=== PATIENT | male | born 1995 | race Two or more races ===

== ENCOUNTER 2018-12-16 05:11 | Emergency (ER) | payer OTHER ==
[~2018-12-16] VITALS: Ht 177.8 cm; Wt 86.9 kg
[2018-12-16 05:11] VITALS: BP 151/70
[2018-12-16] MEDS ORDERED: FEXO1TAB27 PO (05:25)
--- NOTE | 2018-12-16 05:25 | PHYS DOC ---
Adult General Chief Complaint Chief Complaint: ALLERGIES HPI HPI Patient is a 23-year-old male who presents with complaint of allergy-type symptoms after mowing the grass yesterday. Patient states that his eyes got watery and his throat got itchy and he took 30 tech yesterday. He states that the symptoms improved but this morning he had some difficulty sleeping because of postnasal drip. Patient has had no fever.[] Review of Systems Review of Systems Constitutional: Denies fever or chills [] Eyes: Denies change in visual acuity, redness, or eye pain [] HENT: Positive nasal congestion without sore throat [] Respiratory: Denies cough or shortness of breath [] Cardiovascular: No additional information not addressed in HPI [] Allergies Allergies Allergies Coded Allergies Type Severity Reaction Last Updated Verified Penicillins Allergy Unknown 12/16/18 Yes Physical Exam Physical Exam Constitutional: Well developed, well nourished, no acute distress, non-toxic appearance. [] HENT: Normocephalic, atraumatic, bilateral external ears normal, there is posterior oropharyngeal cobblestoning. [] Eyes: PERRLA, EOMI, conjunctiva normal, no discharge. [] Neck: Normal range of motion, no tenderness, supple, no stridor. [] Cardiovascular:Heart rate regular rhythm, no murmur [] Lungs & Thorax: Bilateral breath sounds clear to auscultation [] EKG EKG [] Radiology/Procedures Radiology/Procedures [] Course & Med Decision Making Course & Med Decision Making Pertinent Labs and Imaging studies reviewed. (See chart for details) [] Dragon Disclaimer Dragon Disclaimer This electronic medical record was generated, in whole or in part, using a voice recognition dictation system. Departure Departure: Impression: Primary Impression: Allergic rhinitis Disposition: HOME, SELF-CARE Condition: STABLE Referrals: YELENA DOYLE PA-C (PCP) Patient Instructions: Allergies, Generic Scripts Fexofenadine/Pseudoephedrine (ROSI-D 12 HOUR TABLET) 1 Each Tab.er.12h 1 TAB PO BID PRN for ALLERGIES, #60 TAB Prov: ANTNOIO TRUJILLO Jr. DO 12/16/18 Problem Qualifiers Primary Impression: Allergic rhinitis Allergic rhinitis trigger: unspecified Allergic rhinitis seasonality: seasonal Qualified Codes: J30.2 - Other seasonal allergic rhinitis ANTONIO TRUJILLO Jr. DO Dec 16, 2018 05:25
== END 2018-12-16 05:25 | disposition home or self-care (01) ==
LOC: ER 05:11
DX: J30.2 Other seasonal allergic rhinitis (principal); Z88.0 Allergy status to penicillin
CPT/HCPCS: 99282

== ENCOUNTER → 2019-05-12 | Outpatient (CLI) | payer OTHER ==
[~2019-05-12] MED LIST: FEXO1TAB27 PO; HYOS0.1264 PO; ONDA4TAB7 PO
--- NOTE | 2019-05-12 16:32 | RAD ---
LUMBAR SPINE 2-3V History: Radiculopathy Technique: 3 views lumbar spine. Comparison: None. Findings: Normal alignment. No fracture. Mild L5-S1 degenerative disc changes. Vestigial ribs T12. Impression: 1. Mild L5-S1 spondylosis. Electronically signed by: Jose De Jesus Hough DO (05/12/2019 4:29 PM) [facility]
== END | disposition home or self-care (01) ==
LOC: DXRAD 09:58
PROVIDERS: ATTEND Family Medicine
DX: M47.817 Spondylosis without myelopathy or radiculopathy, lumbosacral region (principal); M53.84 Other specified dorsopathies, thoracic region
CPT/HCPCS: 72100

== ENCOUNTER 2019-05-13 16:20 | Emergency (ER) | payer OTHER ==
[~2019-05-13] VITALS: Ht 177.8 cm; Wt 86.9 kg
[~2019-05-13 16:20] MED LIST changes: -HYOS0.1264 PO; -ONDA4TAB7 PO
[2019-05-13 16:28] VITALS: BP 144/70
[2019-05-13] MEDS ORDERED: ONDA4TAB7 PO (16:43)
[2019-05-13] MEDS ORDERED: HYOS0.1264 PO (16:43)
--- NOTE | 2019-05-13 16:43 | PHYS DOC ---
Past History Past Medical History: No Pertinent History Past Surgical History: No Surgical History Smoking: Non-smoker Alcohol Use: None Drug Use: None Adult General Chief Complaint Chief Complaint: NAUSEA/VOMITING/DIARRHEA HPI HPI Patient is a 23-year-old male presents with abdominal pain and cramping after eating at 2 different fast food restaurants between yesterday and today. Symptoms started yesterday. He has also been exposed to a coworker who was recently diagnosed with a stomach flu. Patient denies any blood in his emesis. Reports his last emesis was proximally 5 hours prior to arrival. He is able to tolerate liquids, no diarrhea. No recent out of the country travel. No fever.[] Review of Systems Review of Systems Constitutional: Denies fever or chills [] Eyes: Denies change in visual acuity, redness, or eye pain [] HENT: Denies nasal congestion or sore throat [] Respiratory: Denies cough or shortness of breath [] Cardiovascular: No chest pain or palpitations[] GI: See history of present illness[] : Denies dysuria or hematuria [] Musculoskeletal: Denies back pain or joint pain [] Integument: Denies rash or skin lesions [] Neurologic: Denies headache, focal weakness or sensory changes [] Endocrine: Denies polyuria or polydipsia [] All other systems were reviewed and found to be within normal limits, except as documented in this note. Allergies Allergies Allergies Coded Allergies Type Severity Reaction Last Updated Verified Penicillins Allergy Intermediate 12/16/18 Yes Physical Exam Physical Exam Constitutional: Well developed, well nourished, no acute distress, non-toxic appearance. [] HENT: Normocephalic, atraumatic, bilateral external ears normal, oropharynx moist, no oral exudates, nose normal. [] Eyes: PERRLA, EOMI, conjunctiva normal, no discharge. [] Neck: Normal range of motion, no tenderness, supple, no stridor. [] Cardiovascular:Heart rate regular rhythm, no murmur [] Lungs & Thorax: Bilateral breath sounds clear to auscultation [] Abdomen: Bowel sounds normal, soft, no tenderness, no masses, no pulsatile masses. [] Skin: Warm, dry, no erythema, no rash. [] Back: No tenderness, no CVA tenderness. [] Extremities: No tenderness, no cyanosis, no clubbing, ROM intact, no edema. [] Neurologic: Alert and oriented X 3, normal motor function, normal sensory function, no focal deficits noted. [] Psychologic: Affect normal, judgement normal, mood normal. [] Current Patient Data Vital Signs Vital Signs Date Time Temp Pulse Resp B/P (MAP) Pulse Ox O2 Delivery O2 Flow Rate FiO2 05/13/19 16:28 99.0 87 16 99 Room Air EKG EKG [] Radiology/Procedures Radiology/Procedures [] Course & Med Decision Making Course & Med Decision Making Pertinent Labs and Imaging studies reviewed. (See chart for details) ED course: Patient arrived, was placed in bed, and tolerated exam well. He was given an time medics as well as antispasmodics. Findings and plan were discussed with the patient who voiced understanding. All questions were answered. He was discharged in improved condition. Medical decision making: Patient with a nausea and vomiting illness, uncertain as to whether it is from food poisoning versus the "stomach flu" that his coworker had. Patient is afebrile, do not believe this to be influenza. No evidence of intractable nausea and vomiting. No evidence of dehydration.[] Dragon Disclaimer Dragon Disclaimer This electronic medical record was generated, in whole or in part, using a voice recognition dictation system. Departure Departure: Impression: Primary Impression: Nausea and vomiting Disposition: 01 HOME, SELF-CARE Condition: IMPROVED Referrals: YELENA DOYLE PA-C (PCP) Follow-up in 2 days Patient Instructions: Nausea and Vomiting Additional Instructions: Drink plenty of fluids, frequent small sips. No fatty foods, no milk, and no p epper for the next 48 hours. For the next 48 hours eat a diet rich in carbohydrates with foods such as bananas, rice, applesauce, and toast. Follow-up with your regular doctor in 2 days. Return to the ER if unable to tolerate liquids, blood in your emesis, or any other concerns. Scripts Ondansetron Hcl (ZOFRAN) 4 Mg Tablet 1 TAB PO Q6HRS for nausea or vomiting, #20 TAB Prov: NEFTALY HALEY DO 05/13/19 Hyoscyamine Sulfate (LEVSIN) 0.125 Mg Tablet 0.125 MG PO QID for abdominal pain/cramping, #30 TAB Prov: NEFTALY HALEY DO 05/13/19 Problem Qualifiers Primary Impression: Nausea and vomiting Vomiting type: unspecified Vomiting Intractability: unspecified Qualified Codes: R11.2 - Nausea with vomiting, unspecified NEFTALY HALEY DO May 13, 2019 16:43
[2019-05-13] MEDS ORDERED: HYOSCYAMINE 0.125 MG TAB.RAPDIS PO ONE (17:00)
[2019-05-13] MEDS ORDERED: ONDANSETRON ODT 4 MG TAB.RAPDIS PO ONE (17:00)
== END 2019-05-13 16:53 | disposition home or self-care (01) ==
LOC: ER 16:20
DX: R11.2 Nausea with vomiting, unspecified (principal); R10.9 Unspecified abdominal pain; Z88.0 Allergy status to penicillin
CPT/HCPCS: 99283; Q0162